=== PATIENT | female | born 1975 | race Caucasian/White ===

== ENCOUNTER 2016-08-17 20:37 | Emergency (ER) | payer MEDICAID ==
[~2016-08-17] VITALS: Ht 170.2 cm; Wt 127.0 kg
[2016-08-17 20:37] VITALS: BP_SYST 166
--- NOTE | 2016-08-17 20:37 | NUR ---
Patient to ER bed 7 to gown for evaluation. Side rails up. Report given to STEPHANIE MI.
--- NOTE | 2016-08-17 20:40 | NUR ---
Pt brought by self, A&Ox4, pt c/o persistent productive cough, VS WNL, ambulatory, respirations even and unlabored, pt denies chest pain.
--- NOTE | 2016-08-17 20:40 | NUR ---
Dr Jacobo at bedside examining patient
[2016-08-17] MEDS ORDERED: IPRATROPIUM/ALBUTEROL SULFATE 3 ML AMPUL.NEB INH ONE (21:15)
[2016-08-17 21:43] VITALS: BP_SYST 152
--- NOTE | 2016-08-17 21:44 | NUR ---
Patient given written and verbal discharge instructions and verbalizes understanding. ER MD discussed with patient the results and treatment provided. Patient in stable condition. ID arm band removed. . Patient educated on pain management and to follow up with PMD. Pain Scale 0/10 . Opportunity for questions provided and answered.
== END 2016-08-17 21:43 | disposition home or self-care (01) ==
LOC: SED 20:37
DX: J20.9 Acute bronchitis, unspecified (principal)
CPT/HCPCS: 71010; 94640; 99283